=== PATIENT | male | born 1975 | race Hispanic/Latino ===

== ENCOUNTER 2016-06-28 18:58 | Observation (INO) | payer BC ==
[2016-06-28] MEDS ORDERED: Sodium Chloride 0.9% 1,000 ML IV STA (19:38)
--- NOTE | 2016-06-28 20:27 | ED PDOC ---
HPI: Psych/Substance Abuse Time Seen by Provider: 06/28/16 19:11 Chief Complaint (Nursing): Alcohol Ingestion Chief Complaint (Provider): Alcohol ingestion ED Caveat: Intoxicated History Per: EMS History/Exam Limitations: intoxication Onset/Duration Of Symptoms: Unknown Current Symptoms Are (Timing): Still Present Modifying Factor(s): Alcohol Involuntary Hold By: None Additional Complaint(s): Salazar Boogie a 40 year old male presents to the ED with intoxication. HPI/ ROS are limited secondary to his currently intoxicated state. Per EMS, patient was found by the CT transit personnel laying on the floor. The patient admits to drinking "booze" and has alcohol on breath. Past Medical History Reviewed: Historical Data, Nursing Documentation, Vital Signs Vital Signs: Last Vital Signs Temp 98 F 06/28/16 19:01 Pulse 110 H 06/28/16 19:01 Resp 18 06/28/16 19:01 BP 165/103 H 06/28/16 19:01 Pulse Ox 98 06/28/16 19:01 - Medical History PMH: No Chronic Diseases - Family History Family History: States: Unknown Family Hx - Social History Alcohol: Other (yes) - Allergies Allergies/Adverse Reactions: Allergies Allergy/AdvReac Type Severity Reaction Status Date / Time Unobtainable Allergy Verified 06/28/16 19:01 Review of Systems Review Of Systems: ROS cannot be obtained secondary to pt's inabilty to answer questions. Psych: Positive for: Other (Acute alcohol intoxication) Physical Exam - Physical Exam Appears: Positive for: Non-toxic, No Acute Distress (vomit noted on shirt) Head Exam: Positive for: ATRAUMATIC, NORMAL INSPECTION, NORMOCEPHALIC Skin: Positive for: Normal Color, Warm, Dry Eye Exam: Positive for: Normal appearance, PERRL ENT: Positive for: Other (alcohol on breath) Neck: Positive for: Normal, Supple Cardiovascular/Chest: Positive for: Regular Rate, Rhythm, Chest Non Tender. Negative for: Murmur Respiratory: Positive for: Normal Breath Sounds. Negative for: Respiratory Distress Gastrointestinal/Abdominal: Positive for: Normal Exam, Soft. Negative for: Tenderness Back: Positive for: Normal Inspection Extremity: Positive for: Normal ROM. Negative for: Deformity Neurologic/Psych: Positive for: Alert (with slurred speech) - Laboratory Results Result Diagrams: 06/28/16 20:31 06/28/16 20:31 - ECG O2 Sat by Pulse Oximetry: 98 (RA) Pulse Ox Interpretation: Normal Medical Decision Making Medical Decision Makin:11 Initial Impression: Alcohol Intoxication Initial Plan: * Alcohol serum * Urinalysis * Drug screen * CMP * CBC * CXR * IV NS 1000ml at 1000ml/hr * Zofran 4mg IVP Scribe Attestation: Documented by Tamika Gallardo training under Yasmeen Raines, acting as a scribe for Cyril Barth PA-C. Provider Scribe Attestation: All medical record entries made by the Scribe were at my direction and personally dictated by me. I have reviewed the chart and agree that the record accurately reflects my personal performance of the history, physical exam, medical decision making, and the department course for this patient. I have also personally directed, reviewed, and agree with the discharge instructions and disposition. ED OBSERVATION Discharge: Yes Date of observation admission: 06/28/16 Time of observation admission: 19:38 - Observation admission statement Patient is being placed in observation because:: ETOH - Goals of Observation Goals of observation are:: Results of ED workup, clinical sobriety, reevaluation and final disposition - Progress Note Progress Note: 06/28/16 21:10 ETOH 278 06/28/16 23:50 Pt. with steady unassisted gait. No slurred speech. Offers no complaints at this time. Abd soft and non-tender to deep palpation. Disposition - Clinical Impression Clinical Impression: Alcohol intoxication - Patient ED Disposition Is Patient to be Admitted: No - Disposition Disposition: Routine/Home Disposition Time: 23:51 Condition: IMPROVED
[2016-06-28 20:40] LABS: BASO % 0.2 % (0.0-2.0); EOS # 0.2 K/uL (0.0-0.7); EOS % 1.2 % (0.0-4.0); HEMATOCRIT 44.9 % (35.0-51.0); LYMPH # 2.8 K/uL (1.0-4.3); LYMPH % 18.5 % (20.0-40.0); MEAN CORPUSCULAR HEMOGLOBIN 30.6 pg (27.0-31.0); MEAN CORPUSCULAR HGB CONC 34.4 g/dL (33.0-37.0); MEAN PLATELET VOLUME 8.4 fl (7.2-11.7); MONO # 0.7 K/uL (0.0-0.8); MONO % 4.7 % (0.0-10.0); NEUT # 11.7 K/uL (1.8-7.0); NEUT % 75.4 % (50.0-75.0); RED CELL DISTRIBUTION WIDTH 12.3 % (11.5-14.5); WHITE BLOOD COUNT 15.4 K/uL (4.8-10.8)
[2016-06-28 20:57] LABS: ALB/GLOB RATIO 1.4 (1.0-2.1); ALCOHOL SERUM 278 mg/dl (0-10); ALKALINE PHOSPHATASE 81 U/L (38-126); ALT/SGPT 43 U/L (21-72); AST/SGOT 38 U/L (17-59); BILIRUBIN,TOTAL 0.6 mg/dl (0.2-1.3); BLOOD UREA NITROGEN 18 mg/dl (9-20); CARBON DIOXIDE 26 mmol/L (22-30); CHLORIDE 102 mmol/L (98-107); GFR AFRICAN-AMERICAN > 60; GLUCOSE,RANDOM 117 mg/dL (75-110); SODIUM 143 mmol/l (132-148)
[2016-06-28 23:46] VITALS: BP 114/70; PULSE 74; RESP 16; TEMP 98.1
[2016-06-28 23:55] VITALS: O2SAT 98
--- NOTE | 2016-06-29 07:02 | RAD ---
HISTORY: clearance COMPARISON: No prior. FINDINGS: LUNGS: No active pulmonary disease. PLEURA: No significant pleural effusion identified, no pneumothorax apparent. CARDIOVASCULAR: Normal. OSSEOUS STRUCTURES: No significant abnormalities. VISUALIZED UPPER ABDOMEN: Normal. OTHER FINDINGS: None. IMPRESSION: No active disease.
== END 2016-06-28 23:55 | disposition home or self-care (01) ==
LOC: H.ER 18:58 → H.EROBSV 19:38
PROVIDERS: ADMIT Emergency Medicine; ATTEND Emergency Medicine
DX: F10.129 Alcohol abuse with intoxication, unspecified (principal); Y90.8 Blood alcohol level of 240 mg/100 ml or more
CPT/HCPCS: 36415; 71010; 80053; 85025; 96374; 99283; G0378; G0480; J2405; J7040